=== PATIENT | female | born 1945 ===

== ENCOUNTER 2022-04-19 08:00 | Inpatient (IN) | payer OTHER ==
[2022-04-19] MEDS ORDERED: ELIQUIS5 MG PO (09:43)
[2022-04-19] MEDS ORDERED: ALLOPURINOL100 MG PO (09:43)
[2022-04-19] MEDS ORDERED: ACTOS15 MG PO (09:44)
[2022-04-19] MEDS ORDERED: PEPCID (09:44)
[2022-04-19] MEDS ORDERED: GLIMEPIRIDE4 MG (09:44)
[2022-04-19] MEDS ORDERED: BETAPACE80 MG PO (09:44)
[2022-04-19] MEDS ORDERED: LEVOTHYROXINE25 MCG PO (09:45)
[2022-04-19] MEDS ORDERED: LIPITOR40 MG PO (09:45)
[2022-04-19] MEDS ORDERED: AVAPRO300 MG PO (09:45)
[2022-04-19] MEDS ORDERED: LASIX20 MG PO (09:45)
[2022-04-19] MEDS ORDERED: PROCARDIA XL (09:46)
[2022-04-24] MEDS ORDERED: NIFEDIPINE ER30 M1 (08:46)
[2022-04-24] MEDS ORDERED: GABAPENTIN600 MG (08:47)
[2022-04-24] MEDS ORDERED: FENOFIBRATE160 MG (08:47)
[2022-04-24] MEDS ORDERED: FAMOTIDINE40 MG (08:47)
[2022-04-26] MEDS ORDERED: OXYC1TAB9 PO (13:19)
[2022-04-26] MEDS ORDERED: INTEGRA PLUS C1 EACH PO (13:19)
[2022-04-26] MEDS ORDERED: BACTRIM DS TAB1 EACH PO (13:19)
[2022-04-26] MEDS ORDERED: ELIQUIS5 MG PO (13:19)
[2022-04-27] MEDS ORDERED: ULTRAM50 MG PO (08:22)
[2022-04-27] MEDS ORDERED: INTEGRA PLUS C1 EACH PO (08:22)
[2022-04-27] MEDS ORDERED: BACTRIM DS TAB1 EACH PO (08:22)
[2022-04-27] MEDS ORDERED: ELIQUIS5 MG PO (08:22)
== END 2022-04-27 14:10 | DRG 470 ==
LOC: O/R 04-24 05:45 → SURG 04-24 05:45
PROVIDERS: ADMIT Orthopaedic Surgery Sports Medicine; ATTEND Orthopaedic Surgery Sports Medicine
PROC: 0SRD0J9 Replacement of Left Knee Joint with Synthetic Substitute, Cemented, Open Approach (ICD-10-PCS; principal; 2022-04-24 07:00)
DX: M17.12 Unilateral primary osteoarthritis, left knee (principal); I10 Essential (primary) hypertension; E11.9 Type 2 diabetes mellitus without complications; Z20.822 Contact with and (suspected) exposure to COVID-19